=== PATIENT | female | born 1970 | race Caucasian/White ===

== ENCOUNTER 2023-09-30 18:26 | Emergency (ER) | payer BC, SELFPAY ==
[2023-09-30 18:28] VITALS: BP 137/77
[2023-09-30 19:21] LABS: % Basophils 0.6 % (0-2); % Eosinophils 2.4 % (0-6); % Immature Granulocytes 0.3 % (0-0.5); % Monocytes 4.6 % (1.7-9.3); % Neutrophils 64.1 % (42.2-75.2); Absolute Basophils 0.1 10^3/uL (0-0.2); Absolute Eosinophils 0.2 10^3/uL (0-0.7); Absolute Lymphocytes 2.2 10^3/uL (1.2-3.4); Absolute Monocytes 0.4 10^3/uL (0.1-0.6); Hematocrit 38.8 % (37.0-47.0); Mean Corp Hgb Conc. 33.5 g/dL (33.0-37.0); Mean Corpuscular Hgb 26.2 pg (27.0-31.0); Mean Corpuscular Volume 78.2 fL (81.0-99.0); Mean Platelet Volume 9.2 fL (7.4-10.4); Nucleated Red Blood Cells % 0 %; Platelet Count 302 10^3/uL (130-400); Red Blood Cell Count 4.96 10^6/uL (4.20-5.40); Red Cell Dist. Width 14.5 % (11.5-14.5); White Blood Cell Count 7.9 10^3/uL (4.8-10.8)
--- NOTE | 2023-09-30 19:43 | ED.GENMED ---
History of Present Illness
General
Chief Complaint: Chest Pain
Source: patient
Exam Limitations: none
Time Seen by Provider: 09/30/23 19:01
Nursing documentation reviewed up to this point in time: agreed with
Travel History
Have you had any contact with someone who has COVID-19?: No
Do you have any symptoms of coronavirus? Fever > 100 degrees, chills, cough, shortness of breath, sore throat, loss of taste or smell, muscle aches, or headache?: No
History of Present Illness
History of Present Illness:
53-year-old female with no significant chronic medical issues presents to the emergency room for evaluation of chest pain. Patient reports onset of symptoms this evening around 5:30 PM shortly after she finished eating. She describes a squeezing
pain left parasternal region. She says that initially she thought it could be related to heartburn and so she took 2 Tums without relief. She went to the store and says that her symptoms continued and she felt they were getting a bit worse and so
she decided come to the emergency room to be assessed. She says she has some associated nausea no vomiting. She denies any shortness of breath. She denies any abdominal pain. She says that she thinks she may have had transient similar symptoms
last night while she was lying in bed but they resolved after few minutes. She says she has had occasional burning chest pain that she attributed to heartburn mostly when lying flat at night. Of note she reports that she has been sick with
lingering URI and is currently on cefuroxime for sinus infection which she started on Wednesday. She has had mild cough associate with this URI which is nonproductive. She denies any personal history of cardiac issues, says that she has a family
history of early SD in her grandfather.
Past History
Past History
ED Past Medical History: None
ED Past Surgical History: and Other ([place] tooth extraction)
Social History
Tobacco: Non-smoker
Alcohol: None
Drug: None
Personal:
Living: with family
Employment: Employed
Family History
Family History: Other (Noncontributory)
Review of Systems
Review of Systems
All Other Systems: ROS reviewed and negative except as documented in HPI and ROS
Constitutional: Denies fever or chills
EENT: Reports runny nose; Denies sore throat
Respiratory: Reports cough; Denies trouble breathing
Cardiac: Reports chest pain; Denies diaphoresis or palpitations
ABD/GI: Reports nausea; Denies abdominal pain, vomiting or diarrhea
: Denies flank pain
Musculoskeletal: Denies neck pain or back pain
Neurological: Denies headache, weakness or numbness
Phy Exam
Physical Exam
Physical Exam:
General: Awake, alert, oriented x3; no acute distress
Head: Normocephalic, atraumatic
Eyes: Conjunctiva normal, sclera anicteric
Throat: Airway intact, handling secretions
Neck: Trachea midline, supple without meningismus
Lungs: Clear to auscultation bilaterally, no wheezing, rales, rhonchi
Heart: Regular rate and rhythm, no murmurs, gallops, or rubs
Abd: Soft, non distended, nontender
Neuro: Cranial nerves grossly intact, speech fluid
Skin: no rash
Extremities: No edema in extremities, equal pulses in all extremities
Scores
Heart Failure Risk
Heart Failure Risk Score: Not Applicable
Heart Score for Chest Pain Patients
STEMI patient?: No
History: Slightly or Non-Suspicious
ECG: Normal
Age: >45 - <65 years
Risk Factors: 1 or 2 Risk Factors
Troponin: </= Normal Limit
Heart Score for Chest Pain Patients: 2
Heart Score Risk: 2.5% MACE over next 6 weeks
Withdrawal Assessment of Alcohol
Withdrawal Assessment Completed?: Not applicable
Course
Orders/Labs/Results
Orders:
Orders
09/30/23 18:30
Electrocardiogram (*1) Urgent
Reason for Study: Chest Pain
EKG- Treatment ONCE
09/30/23 19:03
CR Chest - 2 Views Urgent
Comment:
Reason For Exam: cp
09/30/23 19:17
Complete Blood Count/With Diff Urgent
Comprehensive Metabolic Panel Urgent
Troponin I Urgent
09/30/23 19:37
Mag Hydrox/Al Hydrox/Simeth [Maalox] 30 ml Phenobarb/Hyoscy/Atropine/Scop [] 10 ml PO NOW
Pantoprazole [Protonix IV] 40 mg IV NOW STA
09/30/23 20:14
Mag Hydrox/Al Hydrox/Simeth [Maalox] 30 ml .ROUTE .STK-MED ONE
Phenobarb/Hyoscy/Atropine/Scop [] 10 ml .ROUTE .STK-MED ONE
09/30/23 22:12
Troponin I Urgent
Abnormal Lab Results
09/30/23
19:17
MCV 78.2 L fL
(81.0-99.0)
MCH 26.2 L pg
(27.0-31.0)
Glucose 119 H mg/dl
(70-99)
09/30/23 19:17
09/30/23 19:17
Vital Signs
Initial and Last Documented VS:
Initial Vital Signs
Temp Pulse Resp BP Pulse Ox
36.8 C 76 16 137/77 98
09/30/23 18:28 09/30/23 18:28 09/30/23 18:28 09/30/23 18:28 09/30/23 18:28
Last Documented Vital Signs
Temp Pulse Resp BP Pulse Ox
36.8 C 86 16 116/72 98
09/30/23 18:28 09/30/23 21:05 09/30/23 18:28 09/30/23 21:05 09/30/23 21:05
MDM/Problems Addressed
Differential Diagnosis Includes:
GERD/PUD/esophagitis, ACS, pneumonia, pneumothorax, costochondritis; she has no abdominal pain or tenderness to suggest cholecystitis or cholelithiasis; very low clinical suspicion for PE in my judgment no further workup indicated based on clinical
picture
MDM/Problems Addressed:
53-year-old female presents for evaluation of left-sided chest pain started shortly after eating this evening and has been consistent since then. Did not improve with Tums. No exertional symptoms. Vital signs normal here. Exam as above. EKG
shows no acute ischemia. Plan to place an IV check labs including CBC and CMP, troponin. Will check chest x-ray. Will treat with green grabber and Protonix as I suspect that her symptoms are likely GI in nature�esophagitis versus GERD versus PUD.
Will monitor closely reassess after the above.
Labs reviewed: CBC unremarkable, CMP no clinically significant abnormalities. Troponin negative x 2. Chest x-ray reviewed by me no acute disease. Clinical reassessment symptoms improved with GI cocktail and Protonix. Suspect likely
GERD/esophagitis. Will start patient on PPI. Given her age will provide referral to cardiology for follow-up although symptoms sound unlikely to be cardiac in nature. I think she is stable for discharge at this point in time can follow-up with
PCP and cardiology as an outpatient. She feels comfortable with this plan. Spoke about return precautions all questions answered.
*Radiology
Radiology exam reviewed: preliminary read by ED provider and radiology read reviewed
*Pulse Oximetry
Patient hypoxic: no
*EKG
Interpreted by ED Provider?: Yes
Heart Rate: 70
Rate: normal
Rhythm: sinus
[place]: normal axis
Interval: normal interval
QRS Pattern: normal QRS
Ischemia: no ischemia
*Critical Care Note
Total Time (30-74mins, 75-104mins- exclusive of procedures): Not Applicable
Data Reviewed
Review of Other/Old Records Reveals: Labs and Records
Source: patient and spouse
ED Attending Note
-
Portions of this chart may have been created with voice recognition software.� Occasional wrong word or��sound alike� substitutions may have occurred due to the inherent limitations of voice recognition software.
Discharge Plan
Departure
Patient Disposition: Home (Routine Discharge)
Date of Disposition: 09/30/23
Time of Disposition: 22:51
Patient with high blood pressure during this ER visit?: No
Discharge Problem:
Chest pain
Instructions: Acid Reflux and GERD in Adults (DC), Chest Pain PCP Follow Up
Prescriptions:
New
pantoprazole [Protonix] 40 mg tablet,delayed release (DR/EC)
40 mg PO DAILY Qty: 30 0RF
Referrals:
Hayden Alcantar MD [Active] - Call in 1-3 days for appt
Charo Denny MD [Family Provider] - Call in 1-3 days for appt
Activity Restrictions/Additional Instructions:
Thank you for visiting the Emergency Department at [facility].
1. Please schedule a follow up appointment as directed. Call first thing tomorrow morning to make an appointment.
2. If indicated, please take your medications as instructed and indicated on discharge paperwork.
3. If any of your symptoms do not improve, or persist, or become more severe within 6-12 hours, please return to the emergency department for further care.
4. Please return to the emergency department if you develop a headache, neck pain/stiffness, fever greater than 100.4F, chest pain, shortness of breath, persistent nausea, vomiting, slurred speech, difficulty walking, numbness/tingling, weakness,
signs of infection or any other symptoms that are worrisome to you.
Please call [phone] if you have any questions.
Interventions
Interventions:
*Risk Screen - Suicide Last Done: 09/30/23 19:00
*General Assessment Last Done: 09/30/23 19:00
*Neglect/Abuse Screening Last Done: 09/30/23 19:00
*ED COVID-19 Vaccine History Last Done: 09/30/23 18:28
ED- Cardiac Assessment Last Done: 09/30/23 19:00
[2023-09-30 19:45] LABS: ALT (SGPT) 20 U/L (0-35); AST (SGOT) 27 U/L (14-36); Albumin 3.8 g/dl (3.5-5.0); Alkaline Phosphatase 84 U/L (38-126); Blood Urea Nitrogen 17 mg/dl (7-17); Calcium 9.7 mg/dl (8.4-10.2); Carbon Dioxide 30 mmol/L (22-30); Chloride 98 mmol/L (98-107); Glucose 119 mg/dl (70-99); Sodium 136 mmol/L (135-145); Total Bilirubin 0.5 mg/dl (0.2-1.3); Total Protein 6.8 g/dl (6.3-8.2); eGFR > 60.00
[2023-09-30 19:54] LABS: Troponin I < 0.012 ng/ml
[2023-09-30] MEDS: MAALOX 40 PO (20:19)
[2023-09-30] MEDS: PROTONIX IV 40 MG IV (20:21)
[2023-09-30 21:05] VITALS: BP 116/72
[2023-09-30 22:39] LABS: Troponin I < 0.012 ng/ml
== END 2023-09-30 22:58 | disposition home or self-care (01) ==
LOC: EMR 18:26
PROVIDERS: EMERGENCY PHYSICIAN Emergency Medicine; FAMILY PHYSICIAN Family Medicine
DX: R07.9 Chest pain, unspecified (principal); R12 Heartburn
CPT/HCPCS: 99284; 96374; 71046; 80053; 84484; 85025; 93005

== ENCOUNTER → 2023-12-30 14:51 | Outpatient (REF) | payer BC, SELFPAY | LOC: RCS 14:51 | PROVIDERS: ATTENDING PHYSICIAN Internal Medicine Interventional Cardiology; FAMILY PHYSICIAN Family Medicine | DX: R00.2 Palpitations (principal) | CPT/HCPCS: 93306 ==

== ENCOUNTER → 2024-01-21 08:23 | Outpatient (REF) | payer BC, SELFPAY | LOC: HWRAD 08:23 | PROVIDERS: ATTENDING PHYSICIAN Internal Medicine Gastroenterology; FAMILY PHYSICIAN Family Medicine | DX: R07.89 Other chest pain (principal) | CPT/HCPCS: 76700 ==

== ENCOUNTER → 2024-02-10 07:45 | Outpatient (REF) | payer BC, SELFPAY | LOC: RAD 07:45 | PROVIDERS: ATTENDING PHYSICIAN Internal Medicine Gastroenterology; FAMILY PHYSICIAN Family Medicine | DX: R10.11 Right upper quadrant pain (principal) | CPT/HCPCS: 78227; A9537; J2805 ==

== ENCOUNTER → 2024-04-18 06:17 | Day surgery (SDC) | payer BC, SELFPAY | LOC: GI 06:17 | PROVIDERS: ATTENDING PHYSICIAN Internal Medicine Gastroenterology | DX: K44.9 Diaphragmatic hernia without obstruction or gangrene (principal); K31.89 Other diseases of stomach and duodenum; R12 Heartburn; K29.50 Unspecified chronic gastritis without bleeding; B96.81 Helicobacter pylori [H. pylori] as the cause of diseases classified elsewhere | CPT/HCPCS: 43239; 88305; 88342 ==

== ENCOUNTER → 2024-08-03 18:55 | Outpatient (REF) | payer BC, SELFPAY | LOC: WDC 18:55 | PROVIDERS: ATTENDING PHYSICIAN Family Medicine | DX: Z12.31 Encounter for screening mammogram for malignant neoplasm of breast (principal); Z12.39 Encounter for other screening for malignant neoplasm of breast | CPT/HCPCS: 77063; 77067 ==

== ENCOUNTER 2025-01-09 20:16 | Emergency (ER) | payer BC, SELFPAY ==
[2025-01-09 20:18] VITALS: BP 138/76
[2025-01-09 20:35] LABS: Urine Albumin Negative (Neg - Trace); Urine Bilirubin Negative (Negative); Urine Character Clear (Clear); Urine Color Yellow; Urine Glucose Negative (Negative); Urine Ketone Negative (Negative); Urine Leukocyte 1+ (Negative); Urine Nitrite Negative (Negative); Urine Occult Blood 3+ (Negative); Urine Urobilinogen Negative (Neg - 1+)
[2025-01-09 20:41] LABS: Urine Bacteria Few (Negative); Urine White Cell 0-2 /HPF (0-5)
== END 2025-01-09 23:20 ==
LOC: EMR 20:16
PROVIDERS: Student in an Organized Health Care Education/Training Program
DX: R31.9 Hematuria, unspecified (principal); R30.9 Painful micturition, unspecified; R10.31 Right lower quadrant pain; R14.0 Abdominal distension (gaseous); Z53.21 Procedure and treatment not carried out due to patient leaving prior to being seen by health care provider
CPT/HCPCS: 99281; 81003; 81015; 87086